=== PATIENT | male | born 1995 | race Caucasian/White ===

== ENCOUNTER 2025-01-31 08:33 | Outpatient (REF) | payer OTHER, SELFPAY ==
--- OUTSIDE RECORDS SUMMARY | 2025-01-29 09:45 | XMS_ITS | Encounter Summary ---
Author Organization [employer] Address [address] [facility] 7[address] [place] [address] Care Team Providers Care Firmware Test Engineer Name Role Phone Alexander Man MD Primary Care Prov ider Encounter Details Date Type Department Care Team ([facility] st Contact Info) Description 01/29/2025 9:45 AM EDT Office Visit [facility] [address] [place], [place] [phone] Alexander Man MD [address] [place], [place] [phone] Routine general medical examination at a health care facility (Primary Dx); Encounter for immunization; Dietary counseling; Exercise counseling Social History Tobacco Use Types Packs/Day Years Used Date Smoking Tobacco: Never Assessed Depression Answer Date Recorded Patient Health Questionnaire-9 Score 1 01/29/2025 Patient Health Questionnaire-9 Score 1 01/29/2025 Last PHQ-9: Questionnaire Data Not on file 1 Housing Stability Answer Date Recorded What is your housing situation today? I have hiral queen 01/29/[address] you li ve. Do you have problems with any of the following? None of the above 01/29/2025 Food Insecurity Answer Date Recorded Within the past 12 months, y ou worried that your food would run out before you got money to buy more: Never True 01/29/2025 Within the past 12 months,th e food you bought just didn't last and you didn't have enough money to get more: Never True Transportation Answer Date Recorded In the past 12 months, has l ack of transportation kept you from medical appts, meetings, work or from getting things needed for daily living? No 01/29/2025 Utilities Answer Date Recorded In the past 12 months, has t he electric, gas, oil or water company threatened to shut off services in your home? No 01/29/2025 Depression Answer Date Recorded Patient Health Questionnaire-2 Score 0 01/29/2025 Internet Access Answer Date Recorded Internet Access Q1 Yes 01/29/2025 Internet Access Q2 Not on file 01/29/2025 Sex and Gender Information Value Date Recorded Sex Assigned at Male 02/09/2022 10:34 AM EDT Legal Sex Male 10:34 AM EDT Gender Identity Male 11/29/2024 3:27 PM EDT Sexual Orientation Straight 11/29/2024 3: 27 PM EDT documented as of this encounter Last Filed Vital Signs Vital Sign Reading Time Taken Comments Blood Pressure 132/81 01/29/2025 10:10 AM EDT Pulse 60 01/29/2025 10:10 AM EDT Temperature 37.1 C (98.8 F) 01/29/2025 10:10 AM EDT Respiratory Rate 20 01/29/2025 10:10 AM EDT Oxygen Saturation - - Inhaled Oxygen Concentration - - Weight 107 kg (236 lb) 01/29/2025 10:10 AM EDT Height 176.5 cm (5' 9.5 ) 01/29/2025 10:10 AM ED T Body Mass Index 34.35 01/29/2025 10:10 AM EDT documented in this encounter Functional Status * Over the past 2 weeks, how often have you been bothered by any of the following problems? Question Answer Date of Assessment Author Patient Health Questionnaire-2 Score 0 01/11 10:20 AM EDT Suzanne Hirsch MA * Little interest or pleasure in doing things Answer Date of Assessment Author Not at all 01/29/2025 10:20 AM EDT Michelle Hirsch MA * Feeling down, depressed, or hopeless Answer Date of Assessment Author Not at all 01/29/2025 10:20 AM EDT Michelle Hirsch MA * Trouble falling or staying asleep, or sleeping too much Answer Date of Assessment Author Not at all 01/29/2025 10:20 AM EDT Michelle Hirsch MA * Feeling tired or having little energy Answer Date of Assessment Author Several days 01/29/2025 10:20 AM Michelle Hood MA * Poor appetite or overeating Answer Date of Assessment Author Not at all 01/29/2025 10:20 AM Michelle Hood MA * Feeling bad about yourself - or that you are a failure or have let yourself or your family down Answer Date of Assessment Author Not at all 01/29/2025 10:20 AM Michelle Hood MA * Trouble concentrating on things, such as reading the newspaper or watching television Answer Date of Assessment Author Not at all 01/29/2025 10:20 AM Michelle Hood MA * Moving or speaking so slowly that other people could have noticed? Or the opposite - being so fidgety or restless that you have been moving around a lot more than usual. Answer Date of Assessment Author Not at all 01/29/2025 10:20 AM Michelle Hood MA * Thoughts that you would be better off or hurting yourself in some way Answer Date of Assessment Author Not at all 01/29/2025 10:20 AM Michelle Hood MA * Patient Health Questionnaire-9 Score Answer Date of Assessment Author 1 01/29/2025 10:20 AM Michelle Hood MA * How difficult have these problems made it for you to do your work, take care of things at home, or get along with other people? Answer Date of Assessment Author Not difficult at all 01/29/2025 10:20 AM Suzanne Sotelo MA documented as of this encounter Plan of Treatment Scheduled Orders Name Type Priority Associated Diagnoses Orde r Schedule CBC auto differential Lab Routine Routine general medical examination at a health care facility Expected: 01/29/2025 (Approximate), Expires: 01/29/2026 Hemoglobin A1c Lab Routine Routine general medical examination at a health care facility Expected: 01/29/2025 (Approximate), Expires: 01/29/2026 Lipid Panel, Standard Lab Routine Routine general medical examination at a health care facility Expected: 01/29/2025 (Approximate), Expires: 01/29/2026 Hepatitis B Surface Antibody, Qualitative Lab Routine Routine general medical examination at a health care facility Expected: 01/29/2025 (Approximate), Expires: 01/29/2026 Comprehensive Metabolic Panel Lab Routine Routine general medical examination at a health care facility Expected: 01/29/2025 (Approximate), Expires: 01/29/2026 TSH W/Reflex to FT4 Lab Routine Routine general medical examination at a [facility] Expected: 01/29/2025 (Approximate), Expires: 01/29/2026 Hepatitis C Antibody with Reflex to HCV, RNA, Quantitative, Real-Time PCR Lab Routine Routine general medical examination at a [facility] care [facility] Expected: 01/29/2025, Expires: 01/29/2026 documented as of this encounter Visit Diagnoses Diagnosis Routine general medical examination at a health care facility- Primary Encounter for immunization Dietary counseling Dietary surveillance and counseling Exercise counseling documented in this encounter Additional Health Concerns Assessment Noted Time PHQ-9 Depression Total Score: 1 01/30/20 10:20 AM EDT documented as of this encounter Care Teams Firmware Test Engineer Relationship Specialty Start Date End Date Alexander Man MD [address] [place] [id number] PCP - General Internal Medicine 01/29/25 documented as of this encounter
--- OUTSIDE RECORDS SUMMARY | 2025-01-31 09:04 | XMS_ITS | Clinical Summary ---
Author Organization [employer] Address [address] [facility] 7[address] [place] [address] Care Team Providers Care Linux Unix Engineer Name Role Phone Alexander Man MD Primary Care Prov ider Allergies No known active allergies Encounters Date Type Department Care Team Description 01/29/2025 9:45 AM EDT Office Visit [facility] [address] [place] [address] Alexander Man MD Routine general medical examination at a health care facility (Primary Dx); Encounter for immunization; Dietary counseling; Exercise counseling 01/29/2025 Travel 01/25/2025 Telephone [facility] [address] [place] [address] Alexander Man MD chart prep 01/19/2025 Patient Outreach [facility] [address] [place], [place] [phone] Chetan Spencer MD Pre-visit Planning ([facility] screening unable to complete ) from Last 3 Months Immunizations Immunization Administration Dates Next Due Influenza, seasonal, injectable, preservative fr ee 01/29/2025 Tdap 01/29/2025 Social History Tobacco Use Types Packs/Day Years [...] Orientation Straight 11/29/2024 3: 27 PM EDT Last Filed Vital Signs Vital Sign Reading [...] Mass Index 34.35 01/29/2025 10:10 AM EDT Plan of Treatment Health Maintenance Due Date Last Done Comments HIV Screening 1996 Tobacco Screening 2008 Family Planning (PISQ) 2011 HPV Vaccines (1 - Male 3-dos e series) 2011 Hepatitis C Screening 2014 Hepatitis B Vaccines (1 of 3 - 19+ 3-dose series) 2015 COVID-19 Vaccine (2023-2 5 season) 2024 Alcohol/Substance Use Screening 01/29/2026 01/29/2025 Depression Screening 01/29/2026 01/29/2025, 01/29/2025 Disability Screening 01/29/2026 01/29/2025 SDOH Screening 01/29/2026 01/29/2025 DTaP/Tdap/Td Vaccines (2 - T d or Tdap) 01/29/2035 01/29/2025 Zoster Vaccines (1 of 2) 2046 RSV Patients and Patients Aged 60 years or older (1 - 1-dose 75+ series) 2071 Influenza Vaccine Completed 01/29/2025 HIB Vaccines Aged Out No longer eligi ble based on patient's age to complete this topic Hepatitis A Vaccines Aged Out No long er eligible based on patient's age to complete this topic IPV Vaccines Aged Out No longer eligi ble based on patient's age to complete this topic Meningococcal B Vaccine Aged Out No l onger eligible based on patient's age to complete this topic Meningococcal Vaccine Aged Out No jayla alejandra eligible based on patient's age to complete this topic Pneumococcal Vaccine: Pediatrics (0 to 5 Years) and At-Risk Patients (6 to 49) Years Aged Out No longer eligible b ased on patient's age to complete this topic RSV under 20 months Aged Out No longe r eligible based on patient's age to complete this topic Rotavirus Vaccines Aged Out No longer eligible based on patient's age to complete this topic Insurance [address] [place] [address] , [address] [place] [id number] Care Teams Linux Unix Engineer Relationship Specialty Start Date End Date Alexander Man MD [address] [place] [id number] PCP - General Internal Medicine 01/29/25
--- OUTSIDE RECORDS SUMMARY | 2025-01-31 09:04 | XMS_ITS ---
Author Name [facility] Organization Unknown Care Team Organization Name Specialty Phone Email Start Date End Da freddy [facility] Primary Care 02/17/2022 11/29/19 24
--- OUTSIDE RECORDS SUMMARY | 2025-01-31 09:04 | XMS_ITS | Encounter Summary ---
Author Organization [employer] Address [address] [facility] [address] [place] [address] Care Team Providers Care Dog Groomer Name Role Phone Alexander Man MD Primary Care Prov ider Encounter Details Date Type Department Care Team (Latest Contact Info) Description 01/29/2025 Travel Social History Tobacco Use Types Packs/Day Years Used Date Smoking Tobacco: Never Assessed Depression Answer Date Recorded Patient Health Questionnaire-9 Score 1 01/29/2025 Patient Health Questionnaire-9 Score 1 01/29/2025 Last PHQ-9: Questionnaire Data Not on file 1 Housing Stability Answer Date Recorded What is your housing situation today? I have hiraljennifer queen 01/29/[address] you [...] PM EDT documented as of this encounter Functional Status * Over the past 2 weeks, how often have you been bothered by any of the following problems? Question Answer Date of Assessment Author Patient Health Questionnaire-2 Score 0 01/11 10:20 AM Suzanne Hood MA * Little interest or pleasure in doing things Answer Date of Assessment Author Not at all 01/29/2025 10:20 AM Michelle Hood MA * Feeling down, depressed, or hopeless Answer Date of Assessment Author Not at all 01/29/2025 10:20 AM Michelle Hood MA * Trouble falling or staying asleep, or sleeping too much Answer Date of Assessment Author Not at all 01/29/2025 10:20 AM Michelle Hood MA * Feeling tired or having little [...] 10:20 AM EDT Michelle Hirsch MA * Patient Health Questionnaire-9 Score Answer Date of Assessment Author 1 01/29/2025 10:20 AM EDT Michelle Hirsch MA * How difficult have these problems made it for you to do your work, take care of things at home, or get along with other people? Answer Date of Assessment Author Not difficult at all 01/29/2025 10:20 AM EDT Suzanne Ying MA documented as of this encounter Plan of Treatment Not on file documented as of this encounter Visit Diagnoses Not on filedocumented in this encounter Additional Health Concerns Assessment Noted Time PHQ-9 Depression Total Score: 1 01/30/20 10:20 AM EDT documented as of this encounter Care Teams Dog Groomer Relationship Specialty Start Date End Date Alexander Man MD [address] [place] [id number] PCP - General Internal Medicine 01/29/25 documented as of this encounter
--- OUTSIDE RECORDS SUMMARY | 2025-01-31 09:04 | XMS_ITS | Encounter Summary ---
Author Organization [employer] Address [address] [place] [address] [address] [place] [address] Care Team Providers Care Non Destructive Testing Inspector Name Role Phone Alexander Man MD Primary Care Prov ider Encounter Details Date Type Department Care Team (Latest Contact Info) Description 04/21/2019 Abstract [facility] CONVERSIONS Dental, Provider, DDS Social History Tobacco Use Types Packs/Day Years Used Date Smoking Tobacco: Never Assessed Sex and Gender Information Value Date Recorded Sex Assigned at Male 02/09/2022 10:34 AM EDT Legal Sex Male 10:34 AM EDT Gender Identity Male 11/29/2024 3:27 PM EDT Sexual Orientation Straight 11/29/2024 3: 27 PM EDT documented as of this encounter Plan of Treatment Not on file documented as of this encounter Visit Diagnoses Not on filedocumented in this encounter Care Teams Non Destructive Testing Inspector Relationship Specialty Start Date End Date Alexander Man MD [address] [place] [id number] PCP - General Internal Medicine 01/29/25 documented as of this encounter
[2025-01-31 14:04] LABS: MANUAL DIFF FLAG NO
[2025-01-31 14:07] LABS: Hematocrit 42.3 % (42.0-52.0); Hemoglobin 14.6 g/dl (14.0-18.0); Imm Gran Abs Auto 0.05 X10*3/uL (0.00-0.03); Imm Gran Pct Auto 0.7 % (0.0-0.4); Lymphocytes Absolute Auto 2.6 X10*3/uL (1.2-4.9); Mean Corpuscular HGB Conc 34.5 g/dl (31.0-36.0); Mean Corpuscular Hemoglobin 28.9 pg (27.0-33.0); Mean Corpuscular Volume 83.8 fL (80.0-98.0); NRBC Abs Auto 0.000 X10*3/uL (0.0-0.012); NRBC Pct Auto 0.0 /100WBC (0.0-0.2); Platelet Count 253 X10*3/uL (160-400); Red Blood Count 5.05 X10*6/uL (4.60-5.80); White Blood Count 6.8 X10*3/uL (4.8-10.8)
[2025-01-31 14:46] LABS: Alanine Aminotransferase 69 U/L (0-40); Albumin Level 5.1 g/dL (3.5-5.0); Alkaline Phosphatase 57 U/L (39-117); Anion Gap 10 (12-20); Aspartate Amino Transferase 36 U/L (5-37); Blood Urea Nitrogen 20 mg/dL (9-16); Calcium 9.7 mg/dL (8.4-10.2); Carbon Dioxide 25 mmol/L (22-29); Chloride 107 mmol/L (96-108); Cholesterol 183 mg/dL (<200); Estimated Glomerular Filt Rate > 60; HDL Cholesterol 41 mg/dL (>40); Potassium 4.1 mmol/L (3.3-5.1); Sodium 138 mmol/L (135-145); Total Protein 7.4 g/dL (6.5-8.0); Triglycerides 128 mg/dL (<150)
[2025-02-01 04:11] LABS: HBS Num1 5.09 mIU/mL (0-7.99); ~Hepatitis B Surface Antibody NONREACTIVE (Nonreactive)
[2025-02-01 04:15] LABS: ~HepC Num1 0.09 S/CO (0.00-0.79); ~Hepatitis C Antibody Nonreactive (Nonreactive)
== END 2025-01-31 08:34 | disposition home or self-care (01) ==
LOC: HO.CHCLDS 08:33
PROVIDERS: PCP Internal Medicine; Visit Provider Internal Medicine
DX: Z00.00 Encounter for general adult medical examination without abnormal findings (principal); Z13.29 Encounter for screening for other suspected endocrine disorder; Z13.1 Encounter for screening for diabetes mellitus; Z13.6 Encounter for screening for cardiovascular disorders
CPT/HCPCS: 36415; 80053; 80061; 83036; 84443; 85025; 86706; 86803